=== PATIENT | male | born 1945 | race Caucasian/White ===

== ENCOUNTER 2017-11-13 11:00 | Outpatient (CLI) | payer MEDICARE, SELFPAY ==
[2017-11-13 11:49] LABS: INR 2.6 (1.0-3.5); Prothrombin Time 24.4 sec (9.3-10.8)
== END 2017-11-13 11:20 ==
PROVIDERS: PCP Internal Medicine; Visit Provider Internal Medicine Cardiovascular Disease
DX: I48.2 Chronic atrial fibrillation (principal); Z79.01 Long term (current) use of anticoagulants
CPT/HCPCS: 36415; 85610

== ENCOUNTER 2017-12-11 12:03 | Outpatient (CLI) | payer MEDICARE, SELFPAY ==
[2017-12-11 12:46] LABS: INR 2.5 (1.0-3.5); Prothrombin Time 23.5 sec (9.3-10.8)
== END 2017-12-11 12:23 ==
PROVIDERS: PCP Internal Medicine; Visit Provider Internal Medicine Cardiovascular Disease
DX: I48.2 Chronic atrial fibrillation (principal); Z79.01 Long term (current) use of anticoagulants
CPT/HCPCS: 36415; 85610

== ENCOUNTER 2018-10-16 07:09 | Outpatient (CLI) | payer MEDICARE, SELFPAY ==
[2018-10-16 09:22] LABS: INR 4.1 (0.9-1.1)
== END 2018-10-16 07:29 ==
PROVIDERS: PCP Internal Medicine; Visit Provider Internal Medicine Cardiovascular Disease
DX: I48.2 Chronic atrial fibrillation (principal); Z79.01 Long term (current) use of anticoagulants
CPT/HCPCS: 36415; 85610

== ENCOUNTER 2019-03-21 13:25 | Outpatient (CLI) | payer MEDICARE, SELFPAY ==
[2019-03-21 14:59] LABS: INR 2.4 (0.9-1.1); Prothrombin Time 23.4 sec (9.3-11.0)
== END 2019-03-21 13:45 ==
PROVIDERS: PCP Internal Medicine; Visit Provider Internal Medicine Cardiovascular Disease
DX: I48.91 Unspecified atrial fibrillation (principal); Z79.01 Long term (current) use of anticoagulants
CPT/HCPCS: 36415; 85610

== ENCOUNTER 2020-01-01 03:02 | Outpatient (CLI) | payer MEDICARE, SELFPAY ==
[2020-01-01 15:56] LABS: Anion Gap 7.3 mmol/L (3-11); BUN 20 mg/dL (7-18); CO2 27.7 mmol/L (21.0-32.0); CREATININE 1.13 mg/dL (0.70-1.30); Calcium 8.9 mg/dL (8.5-10.1); Chloride 108 mmol/L (98-107); Glucose 106 mg/dL (74-106); Potassium 4.2 mmol/L (3.5-5.1); Sodium 143 mmol/L (136-145)
[2020-01-01 16:40] LABS: INR 1.9 (0.9-1.1); Prothrombin Time 18.4 sec (9.3-11.0)
== END 2020-01-01 03:22 ==
PROVIDERS: PCP Internal Medicine; Visit Provider Internal Medicine Cardiovascular Disease
DX: I10 Essential (primary) hypertension (principal); I48.20 Chronic atrial fibrillation, unspecified
CPT/HCPCS: 36415; 80048; 85610

== ENCOUNTER 2020-06-12 02:37 | Outpatient (CLI) | payer MEDICARE, SELFPAY ==
[2020-06-12 12:13] LABS: INR 3.2 (0.9-1.1); Prothrombin Time 31.4 sec (9.3-11.0)
== END 2020-06-12 02:38 | disposition home or self-care (01) ==
PROVIDERS: PCP Internal Medicine; Visit Provider Nurse Practitioner Adult Health
DX: I48.20 Chronic atrial fibrillation, unspecified (principal); G45.9 Transient cerebral ischemic attack, unspecified; Z79.01 Long term (current) use of anticoagulants
CPT/HCPCS: 36415; 85610

== ENCOUNTER 2020-08-28 09:16 | Outpatient (CLI) | payer MEDICARE, SELFPAY ==
[2020-08-28 09:46] LABS: INR 1.2 (0.9-1.1)
[2020-08-28 11:37] LABS: HCT 44.9 % (40.0-50.0); HGB 14.7 g/dL (13.5-17.5); MCH 28.5 pg (27.0-33.0); MCHC 32.7 % (32.0-36.0); MCV 87.2 fL (80-95); MPV 10.3 fL (8.0-11.0); Nucleated RBC 0 %; Platelet Count 202 10^3/uL (130-400); RBC 5.15 10^6/uL (4.36-5.78); RDW 13.1 % (11.8-14.1); RDW-SD 42.1 fL; WBC 6.18 10^3/uL (4.4-10.8)
[2020-08-28 11:52] LABS: Absolute Eosinophil Count 0.06 10^3/uL (0.0-0.7); Absolute Lymphocyte Count 1.73 10^3/uL (1.2-3.4); Absolute Monocyte Count 0.43 10^3/uL (0.1-0.8); Absolute Neutrophil Count 3.96 10^3/uL (1.2-6.7); Atypical Lymphocytes % 12; Diff Comment Manual Differential
[2020-08-28 11:53] LABS: RBC Morphology Normal
== END 2020-08-28 09:17 | disposition home or self-care (01) ==
LOC: LBO 09:20
PROVIDERS: PCP Internal Medicine; Visit Provider Nurse Practitioner Adult Health
DX: I48.20 Chronic atrial fibrillation, unspecified (principal); G45.9 Transient cerebral ischemic attack, unspecified; Z79.01 Long term (current) use of anticoagulants; A77.49 Other ehrlichiosis
CPT/HCPCS: 36415; 85025; 85610

== ENCOUNTER 2024-12-03 07:36 | Outpatient (CLI) | payer MEDICARE, SELFPAY ==
--- NOTE | 2024-12-03 07:30 | RT.EKG_ITS ---
APPROVED REPORT Exam: Resting ECG Reason for Exam: afib Patient Location: O HR:106 bpm ECG Measurements Heart Rate 106 AXIS MI [id number] P [id number] QRSd 164 QRS -77 QT 404 T 85 QTc 537 Conclusion Atrial fibrillation... RBBB and LAFB...QRSd >120mS, axis(-40,240) Artifact PVCs
== END 2024-12-03 07:37 | disposition home or self-care (01) ==
LOC: DI.CARD 07:37
PROVIDERS: PCP Internal Medicine; Visit Provider Internal Medicine Cardiovascular Disease
DX: I48.91 Unspecified atrial fibrillation (principal); I45.10 Unspecified right bundle-branch block; I44.0 Atrioventricular block, first degree
CPT/HCPCS: 93010

== ENCOUNTER → 2024-12-03 12:49 | Outpatient (BNVA) | payer MEDICARE, SELFPAY | PROVIDERS: PCP Internal Medicine; Referring Provider Internal Medicine; Visit Provider Internal Medicine Cardiovascular Disease | DX: I42.9 Cardiomyopathy, unspecified (principal); I48.21 Permanent atrial fibrillation; Z95.2 Presence of prosthetic heart valve; I10 Essential (primary) hypertension; Z79.01 Long term (current) use of anticoagulants | CPT/HCPCS: 99203; 93005 ==

== ENCOUNTER → 2025-02-03 00:45 | Outpatient (CLI) | payer MEDICARE, SELFPAY ==
--- NOTE | 2025-02-03 07:00 | DI.RAD_ITS ---
Exam(s) XR CERVICAL SPINE COMP 4-5V EXAM: XR CERVICAL SPINE COMP 4-5V CLINICAL HISTORY: Chronic cervicalgia,neck pain, m54,2. TECHNIQUE: 2D digital imaging was performed. COMPARISON: No exams were available for comparison FINDINGS: Seven views There is no evidence of fracture, listhesis, nor offset of the spinolaminar line. There is multilevel chronic disc space narrowing at C4-5, C5-6, and C6-7 levels. There is some mild-moderate multilevel facet arthropathy. No facet joint malalignment evident. No cervical ribs. Vascular calcification is seen in the right carotid artery in the neck. Cervical curvature is maintained. Incidentally noted are sternotomy wires. No osseous lesions evident. IMPRESSION: Multilevel chronic degenerative disc disease. No fracture or listhesis. Some facet arthropathy evident. DATA REPOSITORY: RADIATION DOSE DELIVERED:
== END ==
LOC: DI 00:45
PROVIDERS: PCP Family Medicine; Visit Provider Family Medicine
DX: M48.02 Spinal stenosis, cervical region (principal)
CPT/HCPCS: 72050

== ENCOUNTER 2025-02-05 00:51 | Outpatient (CLI) | payer MEDICARE, SELFPAY ==
[2025-02-05 08:39] LABS: ALT 22 U/L (10-49); AST 32 U/L (<34); Albumin 4.2 g/dL (3.2-5.0); Alkaline Phosphatase 91 U/L (46-116); Anion Gap 8.7 mmol/L (3-11); BUN 23 mg/dL (9-23); Bilirubin, Total 1.5 mg/dL (0.2-1.2); CO2 28.3 mmol/L (20.0-31.0); Calcium 9.2 mg/dL (8.3-10.6); Chloride 106 mmol/L (98-107); Cholesterol 201 mg/dL (<200); Glucose 79 mg/dL (74-106); HDL Cholesterol 48 mg/dL (>40); Potassium 4.5 mmol/L (3.5-5.1); Sodium 143 mmol/L (136-145); Total Protein 7.4 g/dL (5.7-8.2)
== END 2025-02-05 00:52 | disposition home or self-care (01) ==
LOC: LBO 00:51
PROVIDERS: PCP Family Medicine; Referring Provider Family Medicine; Visit Provider Family Medicine
DX: I48.21 Permanent atrial fibrillation (principal); E78.5 Hyperlipidemia, unspecified
CPT/HCPCS: 36415; 80053; 80061